=== PATIENT | female | born 1970 | race African-American/Black ===

== ENCOUNTER 2020-03-13 16:54 | Emergency (ER) | payer SELFPAY ==
[2020-03-13] MEDS ORDERED: diphenhydrAMINE 50 MG/ML VIAL ONE (17:24)
[2020-03-13] MEDS ORDERED: Metoclopramide HCl 10 MG/2 ML VIAL ONE (17:24)
--- NOTE | 2020-03-13 18:03 | CT ---
CT BRAIN 03/13/20 PROVIDED CLINICAL HISTORY: Frontal headache. FINDINGS: the ventricular system appears normal in size and morphology. There is no evidence for intracranial h emorrhage, or mass effect. Disconjugate gaze is noted. No significant paranasal sinus mucosal disease is evident. The mastoid air cells appear clear. IMPRESSION: No evidence for intracranial hemorrhage or mass effect. POS: [facility]
== END 2020-03-13 19:15 | disposition home or self-care (01) ==
LOC: ERS 16:54
DX: R51.9 Headache, unspecified (principal); E11.9 Type 2 diabetes mellitus without complications; I10 Essential (primary) hypertension; J44.9 Chronic obstructive pulmonary disease, unspecified; F17.210 Nicotine dependence, cigarettes, uncomplicated
CPT/HCPCS: 70450; 94760; 96365; 96366; 96375; J1200; J2765

== ENCOUNTER 2022-11-05 02:04 | Emergency (ER) | payer BC ==
[2022-11-05 02:54] LABS: #Eosinphils 0.3 thou/uL (0.0-0.7); #Monocytes 0.5 thou/uL (0.11-0.59); #Neutrophils 4.3 thou/uL (1.40-6.50); %Basophils 0.3 % (0.0-1.0); %Eosinophils 2.6 % (0.0-10.0); %Lymphocytes 46.4 % (21.0-51.0); %Neutrophils 45.5 % (42.0-75.0); Hematocrit 36.4 % (36.0-47.0); Hemoglobin 11.1 g/dL (12.0-16.0); Mean Corpuscular HGB CONC 30.5 g/dL (32.0-36.0); Mean Corpuscular Hemoglobin 23.9 pg (27.0-31.0); Mean Corpuscular Volume 78.3 fl (78.0-98.0); Mean Platelet Volume 8.9 fL (7.4-10.4); Platelet Count 283 10x3/uL (130-400); RBC Distribution Width 19.1 % (11.5-14.5); Red Blood Cell (RBC) Count 4.65 mill/uL (4.20-5.40); White Blood Cell (WBC) Count 9.6 10x3/uL (4.8-10.8)
[2022-11-05 03:19] LABS: ALT (SGPT) 17 U/L (8-55); AST (SGOT) 12 U/L (5-34); Albumin 3.7 g/dL (3.5-5.0); Alkaline Phosphatase 100 U/L (40-110); Anion Gap 12 mmol/L (10-20); BUN (Urea Nitrogen) 8 mg/dL (7.0-18.7); Bilirubin, Total 0.5 mg/dL (0.2-1.2); Calc. Creatinine Clearance 0 mL/min (70-130); Calcium 9.1 mg/dL (7.8-10.44); Carbon Dioxide 24 mmol/L (22-29); Chloride 107 mmol/L (98-107); Estimated GFR 63; Globulin 2.7 g/dL (2.4-3.5); Glucose 82 mg/dL (70-105); Potassium 3.9 mmol/L (3.5-5.1); Protein, Total 6.4 g/dL (6.0-8.3); Sodium 139 mmol/L (136-145)
[2022-11-05 03:21] LABS: Troponin I Less than 0.010 ng/mL (< 0.028)
== END 2022-11-05 04:10 | disposition home or self-care (01) ==
LOC: ERS 02:04
DX: R07.9 Chest pain, unspecified (principal); E11.9 Type 2 diabetes mellitus without complications; I10 Essential (primary) hypertension; J44.9 Chronic obstructive pulmonary disease, unspecified; F17.210 Nicotine dependence, cigarettes, uncomplicated
CPT/HCPCS: 36415; 71045; 80053; 84484; 85025; 93005